=== PATIENT | female | born 1960 | race Caucasian/White ===

== ENCOUNTER 2018-02-02 20:22 | Inpatient (IN) | payer OTHER ==
[2018-02-02] MEDS: IBUPROFEN 600 MG TAB PO (21:14)
[2018-02-02 21:20] LABS: URINE BLOOD (Dip) POC Trace-intact (NEGATIVE); URINE KETONES (Dip) POC Negative (NEGATIVE); URINE LEUKOCYTE EST (Dip) POC Negative (NEGATIVE); URINE NITRITE (Dip) POC Negative (NEGATIVE); URINE TOTAL PROTEIN POC Negative (NEGATIVE)
[2018-02-02] MEDS: SOD CHLORIDE 0.9% 730 ML IV (22:05)
[2018-02-02 22:15] LABS: ADD MAN DIFF? NO
[2018-02-02 22:21] LABS: BASOPHILS % 0.4 % (0.0-2.0); EOSINOPHILS # 0.2 10^3/ul (0.0-0.5); HEMATOCRIT 33.1 % (37.0-47.0); HEMOGLOBIN 11.5 g/dl (12.0-16.0); LYMPHOCYTES # 1.5 10^3/ul (0.8-2.9); LYMPHOCYTES % 19.9 % (15.0-51.0); MEAN CORPUSCULAR HEMOGLOBIN 29.6 pg (29.0-33.0); MEAN CORPUSCULAR HGB CONC 34.7 g/dl (32.0-37.0); MEAN CORPUSCULAR VOLUME 85.3 fl (82.0-101.0); MEAN PLATELET VOLUME 9.8 fl (7.4-10.4); MONOCYTE # 0.5 10^3/ul (0.3-0.9); MONOCYTES % 6.7 % (0.0-11.0); NEUTROPHIL # 5.4 10^3/ul (1.6-7.5); NEUTROPHILS % 70.6 % (39.0-77.0); PLATELET COUNT 237 10^3/UL (140-415); RED BLOOD COUNT 3.88 10^6/ul (4.20-5.40); RED CELL DISTRIBUTION WIDTH 11.9 % (11.5-14.5)
[2018-02-02 22:21] LABS: WHITE BLOOD COUNT 7.6 10^3/ul (4.8-10.8)
[2018-02-02 22:41] LABS: ANION GAP 11 (5-13); BLOOD UREA NITROGEN 23 mg/dl (7-20); CALCIUM 10.1 mg/dl (8.4-10.2); CARBON DIOXIDE 24 mmol/L (21-31); CHLORIDE 98 mmol/L (97-110); Estimated GFR > 60 mL/min (>60); MAGNESIUM 1.6 mg/dl (1.7-2.5); POTASSIUM 4.6 mmol/L (3.5-5.1); SODIUM 133 mmol/L (135-144)
[2018-02-02 22:45] LABS: GLUCOSE 600 mg/dl (70-220)
[2018-02-02 22:59] LABS: MODE ROOM AIR; MetHgb Venous 0.3 %; Sample Type Blood venous; Site VENOUS LINE; Venous COHb 0.3 %; Venous Fraction OxyHgb 82.1 %; Venous Oxygen Sat 82.6 mmHG (55.0-75.0); Venous Total Hemglobin 12.1 g/dl
[2018-02-03 00:25] LABS: Allen Test ACCEPTAB; Arterial Base Excess -0.6 mmol/L (-3.0-3); Arterial Blood Gas Oxygen Sat 96.1 mmHG (95.0-98.0); Arterial COHb 0.1 % (0.0-3.0); Arterial Fraction of Oxyhgb 95.8 % (93.0-99.0); Arterial HCO3 23.2 mmol/L (22.0-26.0); Arterial MetHb 0.2 % (0.0-1.5); Arterial Total Hemglobin 11.9 g/dl (12.0-18.0); Arterial pCO2 35.4 mmhg (35-45); MODE ROOM AIR; Site Right Radial
[2018-02-03] MEDS: HYDROCODONE/APAP (5/325) TAB PO (01:04)
[2018-02-03] MEDS: INSULIN LISPRO 100 UNIT/ML VIAL SC (01:06)
[2018-02-03] MEDS: IOHEXOL 300MG/ML 150 ML BTL (01:25)
[2018-02-03] MEDS: SOD CHLORIDE 0.9% 100 ML (01:26)
[2018-02-03] MEDS ORDERED: ONDANSETRON 4 MG INJ IV ×2 (03:30→05:30)
[2018-02-03] MEDS ORDERED: ACETAMINOPHEN 325 MG TAB PO (03:30)
[2018-02-03] MEDS: PIPER-TAZO 3.375 GM IV (PMX) 100 ML IVPB ×4 (04:15→23:41)
[2018-02-03] MEDS: SODIUM CHLORIDE 0.9% 1L BAG IV* (04:17)
[2018-02-03] MEDS: VANCOMYCIN 1 GM (PMX) 250 ML IVPB (04:34)
[2018-02-03] MEDS ORDERED: DEXTROSE 50% 50 ML SYRINGE IV ×2 (05:30)
[2018-02-03] MEDS ORDERED: GLUCOSE GEL 15 GRAM TUBE BUCCAL (05:30)
[2018-02-03] MEDS ORDERED: ALBUTEROL/IPRATROPIUM (NEB) 3 ML AMP HHN (05:30)
[2018-02-03] MEDS ORDERED: GLUCAGON 1 MG INJ IM (05:30)
[2018-02-03] MEDS ORDERED: NACL 0.9% 3 ML SYG IV (05:30)
[2018-02-03] MEDS ORDERED: GLUCOSE GEL 15 GRAM TUBE PO ×2 (05:30)
[2018-02-03] MEDS: INSULIN GLARGINE [LANTus] (100 UNITS/ML) SYG SC ×2 (05:44→21:11)
[2018-02-03 07:01] LABS: ADD MAN DIFF? NO
[2018-02-03 07:04] LABS: BASOPHILS % 0.3 % (0.0-2.0); EOSINOPHILS # 0.2 10^3/ul (0.0-0.5); EOSINOPHILS % 2.6 % (0.0-7.0); HEMATOCRIT 30.9 % (37.0-47.0); HEMOGLOBIN 10.6 g/dl (12.0-16.0); LYMPHOCYTES # 1.6 10^3/ul (0.8-2.9); LYMPHOCYTES % 26.1 % (15.0-51.0); MEAN CORPUSCULAR HEMOGLOBIN 29.6 pg (29.0-33.0); MEAN CORPUSCULAR HGB CONC 34.3 g/dl (32.0-37.0); MEAN CORPUSCULAR VOLUME 86.3 fl (82.0-101.0); MEAN PLATELET VOLUME 9.7 fl (7.4-10.4); MONOCYTE # 0.5 10^3/ul (0.3-0.9); MONOCYTES % 7.9 % (0.0-11.0); NEUTROPHIL # 3.9 10^3/ul (1.6-7.5); NEUTROPHILS % 62.8 % (39.0-77.0); PLATELET COUNT 220 10^3/UL (140-415); RED BLOOD COUNT 3.58 10^6/ul (4.20-5.40); RED CELL DISTRIBUTION WIDTH 11.9 % (11.5-14.5)
[2018-02-03 07:04] LABS: WHITE BLOOD COUNT 6.2 10^3/ul (4.8-10.8)
[2018-02-03 07:25] LABS: LACTIC ACID 1.2 mmol/L (0.5-2.0)
[2018-02-03 07:27] LABS: ALANINE AMINOTRANSFERASE 15 IU/L (13-69); ALKALINE PHOSPHATASE 73 IU/L (42-121); ANION GAP 7 (5-13); ASPARTATE AMINO TRANSFERASE 11 IU/L (15-46); BILIRUBIN,INDIRECT 0.4 mg/dl (0-1.1); BILIRUBIN,TOTAL 0.4 mg/dl (0.2-1.3); BLOOD UREA NITROGEN 18 mg/dl (7-20); CARBON DIOXIDE 25 mmol/L (21-31); CHLORIDE 107 mmol/L (97-110); CHOL/HDL RATIO 4.5 RATIO; CHOLESTEROL 146 mg/dl (100-200); CREATININE 0.52 mg/dl (0.44-1.00); Estimated GFR > 60 mL/min (>60); GLUCOSE 196 mg/dl (70-220); HDL CHOLESTEROL 32 mg/dl (37-92); LDL CHOLESTEROL,CALCULATED 92 mg/dl; MAGNESIUM 1.5 mg/dl (1.7-2.5); PHOSPHORUS 3.9 mg/dl (2.5-4.9); POTASSIUM 4.2 mmol/L (3.5-5.1); SODIUM 139 mmol/L (135-144); TRIGLYCERIDES 112 mg/dl (0-149)
[2018-02-03 08:02] LABS: HEMOGLOBIN A1C 13.5 % (0-5.9)
[2018-02-03] MEDS: INSULIN ASPART [NOVOLOG] 3 ML PEN SC ×6 (08:59→21:18)
[2018-02-03] MEDS: SOD CHLORIDE 0.9% 1,000 ML IV (08:59)
[2018-02-03] MEDS: MAGNESIUM SULFATE 2 GM/50 ML 50 ML IVPB (08:59)
[2018-02-03] MEDS ORDERED: VANCOMYCIN IV PER PHARMACY XX (09:00)
[2018-02-03] MEDS: VANCOMYCIN 1 GM 250 ML IVPB (14:16)
[2018-02-03] MEDS: ACETAMINOPHEN 325 MG TAB PO ×2 (16:10→22:49)
[2018-02-04] MEDS: VANCOMYCIN 1 GM 250 ML IVPB ×2 (01:54→15:29)
[2018-02-04] MEDS: ACCU-CHEK XX (01:54)
[2018-02-04] MEDS ORDERED: ACCU-CHEK XX (02:00)
[2018-02-04 05:14] LABS: ADD MAN DIFF? NO
[2018-02-04 05:15] LABS: BASOPHILS % 0.3 % (0.0-2.0); EOSINOPHILS # 0.3 10^3/ul (0.0-0.5); EOSINOPHILS % 3.6 % (0.0-7.0); HEMATOCRIT 30.7 % (37.0-47.0); HEMOGLOBIN 10.4 g/dl (12.0-16.0); LYMPHOCYTES # 2.1 10^3/ul (0.8-2.9); LYMPHOCYTES % 29.9 % (15.0-51.0); MEAN CORPUSCULAR HEMOGLOBIN 29.5 pg (29.0-33.0); MEAN CORPUSCULAR HGB CONC 33.9 g/dl (32.0-37.0); MEAN CORPUSCULAR VOLUME 87.2 fl (82.0-101.0); MEAN PLATELET VOLUME 9.3 fl (7.4-10.4); MONOCYTE # 0.5 10^3/ul (0.3-0.9); MONOCYTES % 7.3 % (0.0-11.0); NEUTROPHIL # 4.1 10^3/ul (1.6-7.5); NEUTROPHILS % 58.2 % (39.0-77.0); PLATELET COUNT 221 10^3/UL (140-415); RED BLOOD COUNT 3.52 10^6/ul (4.20-5.40); RED CELL DISTRIBUTION WIDTH 12.2 % (11.5-14.5)
[2018-02-04] MEDS: PIPER-TAZO 3.375 GM IV (PMX) 100 ML IVPB ×4 (05:28→23:51)
[2018-02-04 05:44] LABS: ANION GAP 6 (5-13); BLOOD UREA NITROGEN 14 mg/dl (7-20); CALCIUM 8.9 mg/dl (8.4-10.2); CARBON DIOXIDE 26 mmol/L (21-31); CHLORIDE 107 mmol/L (97-110); CREATININE 0.64 mg/dl (0.44-1.00); Estimated GFR > 60 mL/min (>60); GLUCOSE 261 mg/dl (70-220); MAGNESIUM 1.6 mg/dl (1.7-2.5); POTASSIUM 4.4 mmol/L (3.5-5.1); SODIUM 139 mmol/L (135-144)
[2018-02-04] MEDS ORDERED: INSULIN ASPART [NOVOLOG] 3 ML PEN SC (08:00)
[2018-02-04] MEDS: INSULIN ASPART [NOVOLOG] 3 ML PEN SC ×7 (08:28→20:30)
[2018-02-04] MEDS: ACETAMINOPHEN 325 MG TAB PO ×3 (08:54→23:55)
[2018-02-04] MEDS: INSULIN GLARGINE [LANTus] (100 UNITS/ML) SYG SC ×2 (12:22→20:30)
[2018-02-04] MEDS: MAGNESIUM OXIDE 400 MG TAB PO (12:25)
[2018-02-04 14:34] LABS: VANCOMYCIN,TROUGH 7.8 ug/ml (10.0-20.0)
[2018-02-05] MEDS: VANCOMYCIN 1.25 GM in SOD CHLORIDE 0.9% 250 ML IVPB ×2 (02:19→13:45)
[2018-02-05] MEDS: ACCU-CHEK XX (02:19)
[2018-02-05 05:20] LABS: ADD MAN DIFF? NO
[2018-02-05 05:30] LABS: WHITE BLOOD COUNT 7.7 10^3/ul (4.8-10.8)
[2018-02-05 05:30] LABS: BASOPHILS % 0.4 % (0.0-2.0); EOSINOPHILS # 0.2 10^3/ul (0.0-0.5); EOSINOPHILS % 2.5 % (0.0-7.0); HEMATOCRIT 32.3 % (37.0-47.0); HEMOGLOBIN 10.9 g/dl (12.0-16.0); LYMPHOCYTES % 26.2 % (15.0-51.0); MEAN CORPUSCULAR HEMOGLOBIN 29.4 pg (29.0-33.0); MEAN CORPUSCULAR HGB CONC 33.7 g/dl (32.0-37.0); MEAN CORPUSCULAR VOLUME 87.1 fl (82.0-101.0); MEAN PLATELET VOLUME 9.7 fl (7.4-10.4); MONOCYTE # 0.6 10^3/ul (0.3-0.9); MONOCYTES % 7.7 % (0.0-11.0); NEUTROPHIL # 4.8 10^3/ul (1.6-7.5); NEUTROPHILS % 62.8 % (39.0-77.0); PLATELET COUNT 268 10^3/UL (140-415); RED BLOOD COUNT 3.71 10^6/ul (4.20-5.40); RED CELL DISTRIBUTION WIDTH 12.1 % (11.5-14.5)
[2018-02-05 05:49] LABS: ANION GAP 5 (5-13); BLOOD UREA NITROGEN 13 mg/dl (7-20); CALCIUM 9.1 mg/dl (8.4-10.2); CARBON DIOXIDE 25 mmol/L (21-31); CHLORIDE 108 mmol/L (97-110); CREATININE 0.68 mg/dl (0.44-1.00); Estimated GFR > 60 mL/min (>60); GLUCOSE 321 mg/dl (70-220); MAGNESIUM 1.7 mg/dl (1.7-2.5); POTASSIUM 4.9 mmol/L (3.5-5.1); SODIUM 138 mmol/L (135-144)
[2018-02-05] MEDS: PIPER-TAZO 3.375 GM IV (PMX) 100 ML IVPB ×3 (06:17→17:35)
[2018-02-05] MEDS: INSULIN ASPART [NOVOLOG] 3 ML PEN SC ×7 (08:28→21:18)
[2018-02-05] MEDS: POLYETHYLENE GLYCOL 17 GM PACKET PO (10:59)
[2018-02-05] MEDS ORDERED: LIDOCAINE 1%/EPI (MDV) 50 ML INJ INJ (13:30)
[2018-02-05] MEDS: LIDOCAINE 2%/EPI MPF (SDV) 20 ML VIAL INJ (13:40)
[2018-02-05] MEDS: morphine 2 MG INJ IV (13:42)
[2018-02-05] MEDS: DOCUSATE SODIUM 100 MG CAP PO (21:14)
[2018-02-05] MEDS: INSULIN GLARGINE [LANTus] (100 UNITS/ML) SYG SC (21:17)
[2018-02-06] MEDS: PIPER-TAZO 3.375 GM IV (PMX) 100 ML IVPB ×3 (00:27→11:41)
[2018-02-06] MEDS: VANCOMYCIN 1.25 GM in SOD CHLORIDE 0.9% 250 ML IVPB ×2 (01:33→14:56)
[2018-02-06] MEDS: ACCU-CHEK XX (01:33)
[2018-02-06 05:42] LABS: ADD MAN DIFF? NO
[2018-02-06 05:52] LABS: BASOPHILS % 0.5 % (0.0-2.0); EOSINOPHILS # 0.3 10^3/ul (0.0-0.5); EOSINOPHILS % 3.9 % (0.0-7.0); HEMATOCRIT 31.3 % (37.0-47.0); HEMOGLOBIN 10.5 g/dl (12.0-16.0); LYMPHOCYTES # 2.3 10^3/ul (0.8-2.9); LYMPHOCYTES % 35.2 % (15.0-51.0); MEAN CORPUSCULAR HEMOGLOBIN 29.4 pg (29.0-33.0); MEAN CORPUSCULAR HGB CONC 33.5 g/dl (32.0-37.0); MEAN CORPUSCULAR VOLUME 87.7 fl (82.0-101.0); MEAN PLATELET VOLUME 9.3 fl (7.4-10.4); MONOCYTE # 0.6 10^3/ul (0.3-0.9); MONOCYTES % 8.9 % (0.0-11.0); NEUTROPHIL # 3.3 10^3/ul (1.6-7.5); NEUTROPHILS % 50.7 % (39.0-77.0); PLATELET COUNT 268 10^3/UL (140-415); RED BLOOD COUNT 3.57 10^6/ul (4.20-5.40); RED CELL DISTRIBUTION WIDTH 11.9 % (11.5-14.5)
[2018-02-06 05:52] LABS: WHITE BLOOD COUNT 6.4 10^3/ul (4.8-10.8)
[2018-02-06 06:20] LABS: ANION GAP 6 (5-13); BLOOD UREA NITROGEN 15 mg/dl (7-20); CARBON DIOXIDE 26 mmol/L (21-31); CHLORIDE 107 mmol/L (97-110); CREATININE 0.69 mg/dl (0.44-1.00); Estimated GFR > 60 mL/min (>60); GLUCOSE 214 mg/dl (70-220); MAGNESIUM 1.8 mg/dl (1.7-2.5); PHOSPHORUS 3.9 mg/dl (2.5-4.9); POTASSIUM 4.5 mmol/L (3.5-5.1); SODIUM 139 mmol/L (135-144)
[2018-02-06] MEDS: INSULIN ASPART [NOVOLOG] 3 ML PEN SC ×7 (08:19→21:51)
[2018-02-06] MEDS: DOCUSATE SODIUM 100 MG CAP PO ×2 (09:08→21:48)
[2018-02-06 14:06] LABS: VANCOMYCIN,TROUGH 11.8 ug/ml (10.0-20.0)
[2018-02-06] MEDS: ACETAMINOPHEN 325 MG TAB PO (15:56)
[2018-02-06] MEDS: TRIMETHOPRIM/SULFAMETHOX (DS) TAB PO (21:48)
[2018-02-06] MEDS: INSULIN GLARGINE [LANTus] (100 UNITS/ML) SYG SC (21:50)
[2018-02-06] MEDS ORDERED: morphine LIQ (10 MG/5 ML) CUP PO (23:30)
[2018-02-07] MEDS: ACCU-CHEK XX (01:53)
[2018-02-07 05:13] LABS: ADD MAN DIFF? NO
[2018-02-07 05:23] LABS: BASOPHILS % 0.6 % (0.0-2.0); EOSINOPHILS # 0.3 10^3/ul (0.0-0.5); EOSINOPHILS % 4.8 % (0.0-7.0); HEMATOCRIT 32.9 % (37.0-47.0); HEMOGLOBIN 11.2 g/dl (12.0-16.0); LYMPHOCYTES # 2.1 10^3/ul (0.8-2.9); LYMPHOCYTES % 39.6 % (15.0-51.0); MEAN CORPUSCULAR HEMOGLOBIN 29.7 pg (29.0-33.0); MEAN CORPUSCULAR VOLUME 87.3 fl (82.0-101.0); MEAN PLATELET VOLUME 9.3 fl (7.4-10.4); MONOCYTE # 0.5 10^3/ul (0.3-0.9); MONOCYTES % 8.8 % (0.0-11.0); NEUTROPHIL # 2.4 10^3/ul (1.6-7.5); NEUTROPHILS % 45.1 % (39.0-77.0); PLATELET COUNT 299 10^3/UL (140-415); RED BLOOD COUNT 3.77 10^6/ul (4.20-5.40); RED CELL DISTRIBUTION WIDTH 12.2 % (11.5-14.5)
[2018-02-07 05:23] LABS: WHITE BLOOD COUNT 5.2 10^3/ul (4.8-10.8)
[2018-02-07] MEDS: INSULIN ASPART [NOVOLOG] 3 ML PEN SC ×6 (08:27→17:31)
[2018-02-07] MEDS: DOCUSATE SODIUM 100 MG CAP PO (08:29)
[2018-02-07] MEDS: TRIMETHOPRIM/SULFAMETHOX (DS) TAB PO (08:29)
[2018-02-07] MEDS ORDERED: traMADol 50 MG TAB PO (09:00)
[2018-02-07] MEDS: CEPHALEXIN 500 MG CAP PO (14:57)
== END 2018-02-07 18:40 | disposition home health service (06) | DRG 603 ==
LOC: FTE 20:22 → PP2 02-03 03:30
PROVIDERS: Internal Medicine
PROC: 0H98XZX Drainage of Buttock Skin, External Approach, Diagnostic (ICD-10-PCS; principal; 2018-02-05)
DX: L02.31 Cutaneous abscess of buttock (principal); E11.65 Type 2 diabetes mellitus with hyperglycemia; B95.0 Streptococcus, group A, as the cause of diseases classified elsewhere; E78.5 Hyperlipidemia, unspecified; Z79.4 Long term (current) use of insulin
CPT/HCPCS: 36415; 36600; 72193; 76536; 80048; 80053; 80061; 80202; 81003; 82803; 82962; 83036; 83605; 83735; 84100; 85025; 87040; 87070; 87081; 93306